=== PATIENT | female | born 1995 | race Caucasian/White ===

== ENCOUNTER 2022-01-08 07:05 | Outpatient (CLI) | payer BC, SELFPAY ==
--- NOTE | 2022-01-08 07:15 | CRLHL7_ITS ---
For Patients: As a result of the Century Cures Act, medical imaging exams and procedure reports are released immediately into your electronic medical record. You may view this report before your referring provider. If you have questions, please contact your health care provider. INDICATION: Evaluate anatomy. COMPARISON: none TECHNIQUE: Real time gustafson scale imaging of the fetus was performed as well as color Doppler analysis of the umbilical vessels. FINDINGS: Sonographic imaging demonstrates a single living intrauterine gestation. Fetus demonstrates a regular cardiac rate of 141 beats per minute. Fetus has a vertex position. The placenta lies mostly posterior with accessory lobe in the anterior aspect without evidence of placenta previa. Small placental lakes noted measuring up to 7 x 6 x 8 millimeters. Amniotic fluid volume appears normal. Single deepest vertical pocket: 4.4 cm. The cervix is closed and measures 4.7 cm in length. The composite ultrasound gestational age is calculated at 20 weeks 6 days with an estimated sonographic due date of 05/22/2022. The estimated weight is 3608 grams which lies at the 60th %. The following biometric measurements were obtained: Biparietal diameter: 5.0 cm/21 weeks 1 day 81st% Head circumference: 18.4 cm/20 weeks 5 days 64th% Abdominal circumference: 15.1 cm/20 weeks 2 days 45th% Femur length: 3.4 cm/20 weeks 5 days 57th% The HC/AC ratio measures: 1.2 On anatomic survey, there is incomplete evaluation of the cerebral ventricles, cavum septi pellucidi, cisterna magna and cerebellum. The nose, lips, and facial profile appear normal. The cervical, thoracic and lumbar spine are well visualized and appear normal. There is a normal four-chamber heart view and the left and right ventricular outflow tracts appear normal. The diaphragm appears normal. The kidneys and bladder also are likely normal. Incomplete evaluation of the stomach. There is a normal three-vessel cord and cord insertion site. The four extremities appear normal. IMPRESSION: Sonographic gestational age 20 weeks 6 days and sonographic due date 05/22/2022. Estimated weight is 68th percentile. Abdominal circumference 45th percentile. Small placental lakes measuring up to 8 millimeters. The placenta lies primarily posteriorly although there appears to be an accessory lobe over the anterior aspect. No previa. Normal cord insertion. Incomplete visualization of the stomach and brain structures. Likely normal appearance of the kidneys. Remainder of the survey is normal. Follow-up in 2 weeks recommended to reassess the stomach, brain and kidneys. Dictated by Petey Rivera MD @ 01/08/2022 9:13:54 AM (Electronically Signed)
== END 2022-01-08 07:06 | disposition home or self-care (01) ==
PROVIDERS: Visit Provider Physician Assistant
DX: Z34.92 Encounter for supervision of normal pregnancy, unspecified, second trimester (principal); Z3A.20 20 weeks gestation of pregnancy
CPT/HCPCS: 76805; 76817

== ENCOUNTER 2022-01-08 09:27 | Outpatient (CLI) | payer BC, SELFPAY ==
[2022-01-08 12:43] LABS: Hepatitis C Virus Antibody* Negative (Negative)
== END 2022-01-08 09:28 | disposition home or self-care (01) ==
LOC: NFLDREF 09:28
PROVIDERS: Visit Provider Physician Assistant
DX: Z34.92 Encounter for supervision of normal pregnancy, unspecified, second trimester (principal)
CPT/HCPCS: 86803

== ENCOUNTER 2022-01-22 07:04 | Outpatient (CLI) | payer BC, SELFPAY ==
--- NOTE | 2022-01-22 07:15 | CRLHL7_ITS ---
For Patients: As a result of the Century Cures Act, medical imaging exams and procedure reports are released immediately into your electronic medical record. You may view this report before your referring provider. If you have questions, please contact your health care provider. INDICATION: f/u structures not previously seen, stomach/brain/kidneys COMPARISON: 01/08/2022 TECHNIQUE: Real time gustafson scale imaging of the fetus was performed as well as color Doppler analysis of the umbilical vessels. FINDINGS: Sonographic imaging demonstrates a single living intrauterine gestation. Fetus demonstrates a regular cardiac rate of 148 beats per minute. Fetus has a breech position. The placenta lies posteriorly. Amniotic fluid volume appears normal. Single deepest vertical pocket: 4.7 cm. Normal stomach, brain and kidneys. IMPRESSION: Normal stomach, brain and kidneys. Dictated by Petey Rivera MD @ 01/22/2022 10:33:18 AM (Electronically Signed)
== END 2022-01-22 07:05 | disposition home or self-care (01) ==
LOC: US 07:07
PROVIDERS: Visit Provider Physician Assistant
DX: Z34.92 Encounter for supervision of normal pregnancy, unspecified, second trimester (principal)
CPT/HCPCS: 76816

== ENCOUNTER 2022-03-09 08:02 | Outpatient (CLI) | payer BC, SELFPAY ==
[2022-03-11 06:34] LABS: Rapid Plasma Reagin (RPR) Non Reactive (Non Reactive)
== END 2022-03-09 08:03 | disposition home or self-care (01) ==
LOC: NFLDREF 08:03
PROVIDERS: Visit Provider Advanced Practice Midwife
DX: Z34.93 Encounter for supervision of normal pregnancy, unspecified, third trimester (principal); Z3A.28 28 weeks gestation of pregnancy
CPT/HCPCS: 86592

== ENCOUNTER 2022-03-12 08:42 | Outpatient (CLI) | payer BC, SELFPAY ==
[2022-03-12 08:09] LABS: Glucose Fasting Check 78 mg/dl (60-115)
[2022-03-12 13:17] LABS: Glucose 1 Hour Gest 146 mg/dl (70-180)
[2022-03-12 13:18] LABS: Glucose GTT-Gestational 3 Hr 110 mg/dl (70-140)
== END 2022-03-12 08:43 | disposition home or self-care (01) ==
PROVIDERS: Visit Provider Advanced Practice Midwife
DX: O99.810 Abnormal glucose complicating pregnancy (principal)
CPT/HCPCS: 82951; 82952

== ENCOUNTER 2022-04-06 09:07 | Outpatient (CLI) | payer BC, SELFPAY ==
--- NOTE | 2022-04-06 09:15 | CRLHL7_ITS ---
For Patients: As a result of the Century Cures Act, medical imaging exams and procedure reports are released immediately into your electronic medical record. You may view this report before your referring provider. If you have questions, please contact your health care provider. INDICATION: Third trimester scan, evaluate growth. covid in COMPARISON: 01/22/2022 TECHNIQUE: Real time gustafson scale imaging of the fetus was performed. FINDINGS: Sonographic imaging demonstrates a single living intrauterine gestation. Fetus demonstrates a regular cardiac rate of 123 beats per minute. Fetus has a vertex position. The placenta lies along the left wall. Amniotic fluid volume appears normal and there is a single deepest vertical pocket: 5.7 cm. The estimated weight is 2009gm which lies at the 32nd %. BPD greater than 97th percentile. HC 57th percentile. AC 27th percentile. FL 20th percentile. The HC/AC ratio measures 1.10 range (0.95-1.11). IMPRESSION: Sonographic gestational age 33 weeks 4 days and sonographic due date 05/21/2022. Sonographic age is 5 days ahead of the clinical age. Estimated weight 32nd percentile. Abdominal circumference 27th percentile. BPD greater than 97th percentile. Dictated by Petey Rivera MD @ 04/06/2022 10:12:47 AM (Electronically Signed)
== END 2022-04-06 09:08 | disposition home or self-care (01) ==
LOC: US 09:09
PROVIDERS: Visit Provider Advanced Practice Midwife
DX: O98.513 Other viral diseases complicating pregnancy, third trimester (principal); Z3A.33 33 weeks gestation of pregnancy
CPT/HCPCS: 76816

== ENCOUNTER 2022-04-21 08:45 | Outpatient (CLI) | payer BC, SELFPAY ==
[2022-04-21 09:37] LABS: Alanine Aminotransferase* 21 U/L (4-35); Aspartate Amino Transferase* 35 U/L (12-35); Blood Urea Nitrogen* 9 mg/dL (5-24); Creatinine* 0.3 mg/dL (0.5-1.5); Estimated Glomerular Filt Rate 149 ml/min
[2022-04-21 09:48] LABS: Total Protein Urine 13 mg/dL
[2022-04-22 13:06] LABS: Strep B DNA Probe NEGATIVE (Negative)
[2022-04-23 20:51] LABS: Strep B Pen/Amox Allergy No
== END 2022-04-21 08:46 | disposition home or self-care (01) ==
PROVIDERS: Visit Provider Advanced Practice Midwife
DX: O13.9 Gestational [pregnancy-induced] hypertension without significant proteinuria, unspecified trimester (principal)
CPT/HCPCS: 82565; 82570; 84156; 84450; 84460; 84520; 87081; 87086; 87653

== ENCOUNTER 2022-04-22 18:50 | Outpatient (CLI) | payer BC, SELFPAY ==
[2022-04-22] VITALS (11 sets, daily range): BP systolic 117–135; BP diastolic 74–84; PULSE 83–106; RESP 16; TEMP 36.6; O2SAT 96
[2022-04-22 20:03] LABS: Hematocrit 37.2 % (33.0-51.0); Hemoglobin* 12.9 gm/dL (12.0-16.0); Mean Corpuscular HGB Conc 35 gm/dL (32-36); Mean Corpuscular Hemoglobin 30 pg (26-34); Mean Corpuscular Volume 87 fL (80-100); Platelet Count* 197 K/uL (140-440); Red Blood Count 4.27 m/uL (4.00-5.20); White Blood Count* 10.71 K/uL (4.50-11.00)
[2022-04-22 20:09] LABS: Slide Review Reflex No
[2022-04-22 20:15] LABS: Total Protein Urine 18 mg/dL
[2022-04-22 20:17] LABS: Creatinine Urine 46.6 mg/dL
[2022-04-22 20:27] LABS: Alanine Aminotransferase* 21 U/L (4-35); Aspartate Amino Transferase* 30 U/L (12-35); Blood Urea Nitrogen* 10 mg/dL (5-24); Creatinine* 0.4 mg/dL (0.5-1.5); Estimated Glomerular Filt Rate 139 ml/min
--- NOTE | 2022-04-22 22:31 | PC.OBNST ---
NST Note NST Note Start: 04/22/22 19:10 Freq: ONCE Status: Discharge Protocol: Document 04/22/22 22:20 MMB (Rec: 04/22/22 22:21 MMB [id number]) NST Note 1 Para (# of births) 0 EDC 05/26/22 Gestational Age In Weeks & Days 35 Weeks & 1 Days Patient Presented with Complaint(s) of Headache Other Complaints High blood pressures on home BP monitor at home. Reactive Yes Appropriate for Gestational Age Yes MARILYN Lezama RN Date 04/22/22 Reactive Yes Appropriate for Gestational Age Yes MARILYN Herbert RN Date 04/22/22 OB NST charge Yes Complete NST Note via Write Note Yes The provider's electronic signature indicates the NST is reactive/appropriate for gestational age. *Note to provider: If an addendum is required, open the patient's chart and click on the note under the Nurse/Allied Health tab.
== END 2022-04-22 21:10 | disposition home or self-care (01) ==
LOC: OB OUT 18:52 → OB 18:53
PROVIDERS: Visit Provider Advanced Practice Midwife
DX: O13.3 Gestational [pregnancy-induced] hypertension without significant proteinuria, third trimester (principal); Z3A.35 35 weeks gestation of pregnancy
CPT/HCPCS: 36415; 59025; 76819; 82565; 82570; 84156; 84450; 84460; 84520; 85027; 99213

== ENCOUNTER 2022-04-24 09:46 | Outpatient (CLI) | payer BC, SELFPAY ==
[2022-04-24 11:02] LABS: Total Protein Urine 13 mg/dL
[2022-04-24 11:04] LABS: Creatinine Urine 55.8 mg/dL
[2022-04-24 11:09] LABS: Collection Time Urine 24 Hours; Total Protein 24 Hour Urine 273 mg/dL; Total Volume 24 Hour Urine 2100 ml; Urine Creatinine mg/24 Hour 0 mg/Day
== END 2022-04-24 09:47 | disposition home or self-care (01) ==
LOC: NFLDREF 09:49
PROVIDERS: Visit Provider Advanced Practice Midwife
DX: O13.3 Gestational [pregnancy-induced] hypertension without significant proteinuria, third trimester (principal); Z3A.36 36 weeks gestation of pregnancy
CPT/HCPCS: 82570; 84156

== ENCOUNTER 2022-05-01 07:13 | Outpatient (CLI) | payer BC, SELFPAY ==
--- NOTE | 2022-05-01 07:15 | CRLHL7_ITS ---
For Patients: As a result of the Century Cures Act, medical imaging exams and procedure reports are released immediately into your electronic medical record. You may view this report before your referring provider. If you have questions, please contact your health care provider. INDICATION: High-risk TECHNIQUE: Real time gustafson scale imaging of the fetus was performed. COMPARISON: 04/22/2022, 04/06/2022 FINDINGS: Sonographic imaging demonstrates a single living intrauterine gestation. Fetus demonstrates a regular cardiac rate of 144 beats per minute. Fetus has a vertex position. The placenta lies left anterior. Amniotic fluid volume appears normal and there is a single deepest pocket of 4.3 cm. The estimated weight is 2896gm which lies at the 49th %. On the prior OB ultrasound dated 04/06/2022 the estimated weight was at the 32nd percentile. BPD 68th percentile. HC 36th percentile. AC 66th percentile. FL 17th percentile. The fetus was active and demonstrated normal breathing movements. There was normal flexion and extension of the trunk and extremities. IMPRESSION: Normal biophysical profile score 8/8. Sonographic gestational age 36 weeks 3 days and sonographic due date 05/26/2022. Good correlation with dates. Normal interval growth. Estimated weight 49th percentile. Abdominal circumference 66th percentile. Dictated by Petey Rivera MD @ 05/01/2022 10:10:28 AM (Electronically Signed)
== END 2022-05-01 07:14 | disposition home or self-care (01) ==
LOC: US 07:13
PROVIDERS: Visit Provider Advanced Practice Midwife
DX: O09.93 Supervision of high risk pregnancy, unspecified, third trimester (principal); Z3A.36 36 weeks gestation of pregnancy
CPT/HCPCS: 76816; 76819; 82565; 82570; 84156; 84450; 84460; 84520; 84550

== ENCOUNTER 2022-05-03 19:08 | Inpatient (IN) | payer BC, SELFPAY ==
[2022-05-03] VITALS (17 sets, daily range): BP systolic 94–172; BP diastolic 63–107; PULSE 73–93; BMI 23.6
[2022-05-03 19:11] LABS: Hematocrit 37.9 % (33.0-51.0); Hemoglobin* 13.2 gm/dL (12.0-16.0); Mean Corpuscular HGB Conc 35 gm/dL (32-36); Mean Corpuscular Hemoglobin 30 pg (26-34); Mean Corpuscular Volume 87 fL (80-100); Platelet Count* 187 K/uL (140-440); Red Blood Count 4.37 m/uL (4.00-5.20); Slide Review Reflex No; White Blood Count* 9.14 K/uL (4.50-11.00)
[2022-05-03] MEDS: LABETALOL HCL 5 MG/ML inj IVP (19:14)
[2022-05-03] MEDS: LACTATED RINGERS 1000 ML 1,000 ML 75 ML IV (19:15)
[2022-05-03 19:27] LABS: Alanine Aminotransferase* 21 U/L (4-35); Aspartate Amino Transferase* 29 U/L (12-35); Blood Urea Nitrogen* 12 mg/dL (5-24); Creatinine* 0.4 mg/dL (0.5-1.5); Estimated Glomerular Filt Rate 139 ml/min; Total Protein Urine 17 mg/dL
[2022-05-03 19:29] LABS: Creatinine Urine 16.7 mg/dL
--- NOTE | 2022-05-03 20:06 | W.PM.LDBA ---
Subjective History of Present Illness Date Seen: 05/03/22 Narrative: Patient is being admitted to Labor and Delivery for IOL in the setting of preeclampsia with severe features. She is a 26 year old at 36 5/7 weeks gestation. Her full history and physical was dictated by Dr. Olinda CORADO on 04/28/22. Please see this for details. Patient called labor and delivery with concerns of severely elevated blood pressures at home systolics in the 160s range, she also complains of a mild headache but feels like this could be associated with a recent sinus infection. Upon arrival patient was found with systolic in the 170s. IV labetalol and IV Magnesium therapy started for seizure prevention. OB - H&P: Exam Physical Exam: Vital signs: Pulse BP 90 142/83 H 05/03/22 19:45 05/03/22 19:45 Narrative: VITAL SIGNS: As noted above. GENERAL APPEARANCE: Alert, cooperative female in no acute distress. MOOD & AFFECT: Normal. ABDOMEN: Gravid, nontender Cervix:1.5cm/60%/vx/-1, posterior but soft EXTREMITIES: Nonedematous. Well perfused. Nontender. NST:130bpm/positive accelerations/negative deceleration/moderate variability/irregular uterine contractions OB - Problem Based A/P Additional Plan (1) Severe preeclampsia: Status: Acute Plan IOL due to preeclampsia with severe features: 1. IOL started with placement of cook catheter, will also start IV oxytocin at midnight. 2. Continue maintenance Magnesium sulfate infusion, labs every 4 hours, magnesium toxicity checks as per protocol, STRICT I/O, will treat severely elevated blood pressures as needed and per protocol. 3. GBS negative no need for antibiotic prophylaxis. 4. Pain management, candidate for analgesia of choice.
[2022-05-03 21:37] LABS: SARS PCR* Negative SARS-CoV-2 (Negative)
[2022-05-04] VITALS (79 sets, daily range): BP systolic 92–144; BP diastolic 46–85; PULSE 63–93; RESP 16–18; TEMP 36.3–37.2; O2SAT 91–100
[2022-05-04 01:14] LABS: Hematocrit 35.4 % (33.0-51.0); Hemoglobin* 12.4 gm/dL (12.0-16.0); Mean Corpuscular HGB Conc 35 gm/dL (32-36); Mean Corpuscular Hemoglobin 31 pg (26-34); Mean Corpuscular Volume 88 fL (80-100); Platelet Count* 181 K/uL (140-440); Red Blood Count 4.04 m/uL (4.00-5.20); White Blood Count* 10.63 K/uL (4.50-11.00)
[2022-05-04 01:16] LABS: Slide Review Reflex No
[2022-05-04 01:30] LABS: Prothrombin Time 12.7 Seconds
[2022-05-04 01:31] LABS: Fibrinogen* 453 mg/dL (200-450)
[2022-05-04 01:34] LABS: Creatinine* 0.4 mg/dL (0.5-1.5); Estimated Glomerular Filt Rate 139 ml/min
[2022-05-04 01:35] LABS: Alanine Aminotransferase* 19 U/L (4-35); Aspartate Amino Transferase* 30 U/L (12-35); Blood Urea Nitrogen* 11 mg/dL (5-24)
[2022-05-04] MEDS: OXYTOCIN 30 unit/500 ML in NS 30 UNIT/500 ML BAG IVPB (01:42)
[2022-05-04 01:44] LABS: Magnesium* 4.7 mg/dL (1.5-2.6)
[2022-05-04 07:34] LABS: Hematocrit 40.5 % (33.0-51.0); Hemoglobin* 13.9 gm/dL (12.0-16.0); Mean Corpuscular HGB Conc 34 gm/dL (32-36); Mean Corpuscular Hemoglobin 30 pg (26-34); Mean Corpuscular Volume 87 fL (80-100); Platelet Count* 198 K/uL (140-440); Red Blood Count 4.65 m/uL (4.00-5.20); White Blood Count* 10.51 K/uL (4.50-11.00)
[2022-05-04 07:40] LABS: Slide Review Reflex No
[2022-05-04 07:50] LABS: Alanine Aminotransferase* 21 U/L (4-35); Aspartate Amino Transferase* 28 U/L (12-35); Blood Urea Nitrogen* 9 mg/dL (5-24); Creatinine* 0.4 mg/dL (0.5-1.5); Estimated Glomerular Filt Rate 139 ml/min
[2022-05-04 07:58] LABS: Magnesium* 5.6 mg/dL (1.5-2.6)
[2022-05-04] MEDS: ONDANSETRON 2 MG/ML inj 4 MG IV (08:16)
[2022-05-04] MEDS: LACTATED RINGERS 1000 ML 1,000 ML 63 ML IV (08:26)
[2022-05-04] MEDS: ROPIVACAINE 0.2% 100 ml 100 ML 12 MG EPIDURAL (09:46)
[2022-05-04] MEDS: PHENYLEPHRINE 100 MCG/ML SYRINGE IVP ×5 (09:51→10:51)
--- NOTE | 2022-05-04 09:57 | PM.ANBPRC ---
[facility] Medical History (Updated 05/03/22 @ 20:59 by Laurie Alexandra MD) No chronic problems Surgical History (Updated 01/08/22 @ 10:26 by Melanie Doyle PA-C) History of wisdom tooth extraction Social History (Updated 01/08/22 @ 10:26 by Melanie Doyle PA-C) Narrative: [employer]. . Smoking Status: Never smoker Little interest or pleasure in doing things: not at all Feeling down, depressed, or hopeless: not at all Meds Home Medications and Allergies Home Medications Medication Instructions Recorded Confirmed Type docosahexaenoic acid 200 mg mg PO 01/08/22 05/01/22 History capsule ( DHA) Allergies Allergy/AdvReac Type Severity Reaction Status Date / Time No Known Drug Allergies Allergy Verified 05/01/22 08:46 Results Labs Labs: Laboratory Results - last 24 hr 05/03/22 05/03/22 05/03/22 19:03 19:03 19:03 WBC 9.14 RBC 4.37 Hgb 13.2 Hct 37.9 MCV 87 MCH 30 MCHC 35 Plt Count 187 INR Fibrinogen BUN 12 Creatinine 0.4 L Estimated Creat Clear Estimated GFR 139 Magnesium AST 29 ALT 21 Urine Creatinine Protein/Creatinin Ratio Urine Total Protein SARS-CoV-2 (PCR) Negative SARS-CoV-2 Blood Type Antibody Screen 05/03/22 05/04/22 05/04/22 19:03 01:05 01:05 WBC 10.63 RBC 4.04 Hgb 12.4 Hct 35.4 MCV 88 MCH 31 MCHC 35 Plt Count 181 INR Fibrinogen BUN Creatinine Estimated Creat Clear Estimated GFR Magnesium AST ALT Urine Creatinine 16.7 Protein/Creatinin Ratio 1.00 H Urine Total Protein 17 SARS-CoV-2 (PCR) Blood Type A Positive Antibody Screen NEGATIVE 05/04/22 05/04/22 05/04/22 01:05 01:05 07:03 WBC 10.51 RBC 4.65 Hgb 13.9 Hct 40.5 MCV 87 MCH 30 MCHC 34 Plt Count 198 INR 0.90 L Fibrinogen 453 H BUN 11 Creatinine 0.4 L Estimated Creat Clear 190.10 Estimated GFR 139 Magnesium 4.7 H* AST 30 ALT 19 Urine Creatinine Protein/Creatinin Ratio Urine Total Protein SARS-CoV-2 (PCR) Blood Type Antibody Screen 05/04/22 07:03 WBC RBC Hgb Hct MCV MCH MCHC Plt Count INR Fibrinogen BUN 9 Creatinine 0.4 L Estimated Creat Clear 190.10 Estimated GFR 139 Magnesium 5.6 H* AST 28 ALT 21 Urine Creatinine Protein/Creatinin Ratio Urine Total Protein SARS-CoV-2 (PCR) Blood Type Antibody Screen Vital Signs Vital Signs: Last Vital Signs Temp 97.6 F 05/04/22 07:16 Pulse 78 05/04/22 09:55 Resp 16 05/04/22 07:16 BP 130/85 05/04/22 09:55 Pulse Ox 98 05/04/22 09:39 Weight: 64.424 kg Height: 165.1 cm Anesthesia Procedures Epidural Insertion Patient Location: OB Start Time: : Stop Time: :17 Start Date: 05/04/22 Stop Date: 05/04/22 Reason for Block: procedure for pain Patient Position: sitting Performed By: Teddy Nesbitt Preanesthetic Checklist: IV checked, risks and benefits discussed, surgical consent, monitors and equipment checked, pre-op evaluation, timeout performed and anesthesia consent Prep: chlorhexidine gluconate Monitoring: blood pressure monitoring, continuous pulse oximetry and heart rate Approach: midline Vertebral Space: lumbar (1-5) Epidural Technique: MARCIA saline Needle Type: Tuohy needle Injection Technique: continuous catheter Needle gauge: 17 Needle Length (cm): 10 cm Needle Insertion Depth (cm): 6 Catheter Gauge: 19 Catheter Type: multi-orifice Catheter at skin depth (cm): 12 Test Dose Result: negative and lidocaine 1.5% with epinephrine 1 to 200,000
[2022-05-04] MEDS: ePHEDrine sulfate 5 MG/ML inj 10 MG IVP ×2 (10:57→11:40)
[2022-05-04] MEDS: LACTATED RINGERS 1000 ML 1,000 ML 500 ML IV (11:01)
--- NOTE | 2022-05-04 11:20 | PM.OBPNL ---
Subjective Time Seen by Provider: 08:00 Date Seen: 05/04/22 Objective Vital Signs: Last Vital Signs Temp 97.5 F L 05/04/22 10:44 Pulse 80 05/04/22 11:18 Resp 16 05/04/22 10:44 BP 105/57 L 05/04/22 11:18 Pulse Ox 97 05/04/22 10:21 Pelvic Exam Dilation (cm): 7 Effacement (%): 90 Station: +1 Contractions Monitor mode: External Contraction pattern: Regular Contraction intensity: Moderate Assessment Assessment: active labor and induction ongoing Tracing Comments: Examined patient at 0745 and she was 4/75/-1, very uncomfortable. At that point, strip was Cat I with baseline of 120s, moderate variability, + accel and no decel. She SROM shortly afterd at 0808. Shortly after she started having intermittent variables, resolved with position changes. After her epidural at around 1000, patient had a run of late decelerations down to 90s due to hypotension to the 90s/50s. Scalp clip placed. She was treated with phenylephrine and ephedrine, Pitocin was turned off from IV bolus initiated, and she was repositioned in the knees. SVE by myself at 1030: 7/90/+1. Fetus recovered well after the interventions. Baseline 110s, moderate variability, +accel, no decel. Labor Progress: Patient in active labor and progressing appropriately. Maternal Status: Patient comfortable but is hypotensive. Will treat BP and monitor.
[2022-05-04] MEDS: LACTATED RINGERS 1000 ML 1,000 ML 125 ML IV (13:01)
--- NOTE | 2022-05-04 15:01 | PM.OBPRCVD ---
Procedure Delivery date: 05/04/22 Procedure Done: Global Procedure Details: Jasmina is a 26 year-old G 1P 100 admitted on 05/03/2022 at 36 Weeks, 5 Days gestation for preeclampsia with severe features. SROM occurred at 0807 on 05/04/2022 with clear fluid. Labor Analgesia: Fentanyl and epidural Pitocin: Yes Labor onset: May 04 at 0807. Complete: May 04 at 1247. Pushing: May 04 at 1248. heart tones during second stage were: Cat II with intermittent variables and lates. Good recovery in between pushing and moderate variability throughout. At 1437 a viable male infant delivered in vertex OA presentation over 1st degree laceration via spontaneous vaginal delivery. The was placed on maternal abdomen. Cord was clamped and cut after a 30 second delay. Nose and mouth were bulb suctioned. weight 6 lb 12 oz. 6 at 1 minute and 8 at 5 minutes. Shoulder dystocia: No. Nuchal cord: Tight nuchal cord x1, reduce manually after delivery of head. Placenta delivered spontaneously and complete at 1438 with a 3 vessel cord. Laceration(s): First-degree. Repaired using 2-0 Vicryl suture in continuous running manner. Blood loss: 50 mL. Blood loss measurement type: QBL Sponge and needles counts are correct. Specimen: None Mother and were stable after delivery. 's name: Undecided The patient is planning on breast feeding. Events: Labor < 37 Weeks, Pre-Eclampsia (Pre-eclampsia with severe features ) and Labor Induction Intrapartal Events: Labor Induction Induction method: Intracervical balloon catheter Delivery augmentation: pitocin Delivery monitor: external FHT Route of delivery: Episiotomy description: None Laceration description: Perineal - 1st Degree Delivery repair: Vicryl Anesthesia type: Epidural Disposition: floor
[2022-05-04 15:42] LABS: Hematocrit 39.7 % (33.0-51.0); Hemoglobin* 13.8 gm/dL (12.0-16.0); Mean Corpuscular HGB Conc 35 gm/dL (32-36); Mean Corpuscular Hemoglobin 30 pg (26-34); Mean Corpuscular Volume 87 fL (80-100); Platelet Count* 152 K/uL (140-440); Red Blood Count 4.54 m/uL (4.00-5.20); White Blood Count* 12.87 K/uL (4.50-11.00)
[2022-05-04 15:43] LABS: Slide Review Reflex No
[2022-05-04 15:59] LABS: Alanine Aminotransferase* 21 U/L (4-35); Aspartate Amino Transferase* 33 U/L (12-35); Blood Urea Nitrogen* 8 mg/dL (5-24); Creatinine* 0.4 mg/dL (0.5-1.5); Estimated Glomerular Filt Rate 139 ml/min
[2022-05-04 16:08] LABS: Magnesium* 5.6 mg/dL (1.5-2.6)
[2022-05-04] MEDS: IBUPROFEN 600 MG TABLET PO (18:20)
[2022-05-05] VITALS (9 sets, daily range): BP systolic 115–147; BP diastolic 68–93; PULSE 82–98; RESP 16; TEMP 36.4–36.8; O2SAT 95–100
[2022-05-05] MEDS: IBUPROFEN 600 MG TABLET PO ×4 (00:37→18:19)
[2022-05-05] MEDS: LACTATED RINGERS 1000 ML 1,000 ML 75 ML IV (01:09)
[2022-05-05 06:13] LABS: Hematocrit 33.9 % (33.0-51.0); Hemoglobin* 11.6 gm/dL (12.0-16.0); Mean Corpuscular HGB Conc 34 gm/dL (32-36); Mean Corpuscular Hemoglobin 30 pg (26-34); Mean Corpuscular Volume 88 fL (80-100); Platelet Count* 183 K/uL (140-440); Red Blood Count 3.87 m/uL (4.00-5.20); White Blood Count* 11.31 K/uL (4.50-11.00)
[2022-05-05 06:17] LABS: Slide Review Reflex No
[2022-05-05 06:25] LABS: Alanine Aminotransferase* 21 U/L (4-35); Aspartate Amino Transferase* 35 U/L (12-35); Blood Urea Nitrogen* 6 mg/dL (5-24); Creatinine* 0.4 mg/dL (0.5-1.5); Estimated Glomerular Filt Rate 139 ml/min
[2022-05-05 06:33] LABS: Magnesium* 5.8 mg/dL (1.5-2.6)
[2022-05-05] MEDS: DOCUSATE SODIUM 100 MG CAPSULE PO (08:54)
--- NOTE | 2022-05-05 13:40 | PM.OBPNVD1 ---
OB - PN:Subj Subjective Time Seen by Provider: 11:00 Date Seen: 05/05/22 Interval history: OB Problem List 1. Transfer OB at 20 weeks 2 days:? No records at 1st visit 2.?Accessory placenta lobe w/ Small placental lakes noted measuring up to 7 x 6 x 8 millimeters.? 3. Varicella IgG: Equivocal.? Would consider nonimmune. Would consider vaccination . 4. Covid in October at 12 weeks. Doing growth at 33 weeks: EFW 32% repeat at 37 5. Failed 1hr GTT: 143 3hr: Pass all values of 3 hour 6. Gestational Hypertension, then severe preeclampsia Elevated BP at 35 weeks (04/21). BP re-check on 04/22: 150/100 Biweekly monitoring alternating BPP and NST IOL @ 37 Weekly labs Betamethasone at 36weeks, declines at this time, consider at Tuesday 05/01 appointment: Declines Narrative: Dom has been maintained on magnesium. She is having a little difficulty focusing her eyes, but her mag level is normal. She is looking forward to taking a shower. She is without difficulty. Scant bleeding. Minimal discomfort; some cramping accompanying . Tolerating a regular diet. Urinating without difficulty. OB - PN: Obj Exam Physical Exam: Vital signs: Temp Pulse Resp BP Pulse Ox O2 Del Method 97.5 F L 89 16 131/81 97 05/05/22 12:16 05/05/22 12:16 05/05/22 12:16 05/05/22 12:16 05/05/22 12:16 05/05/22 07:49 Normotensive since of her baby yesterday. Narrative: General: Pleasant, no acute distress Heart: Regular rate and rhythm, no murmur or gallop Lungs: Clear to auscultation bilaterally Abdomen: Soft, nontender, fundus well below umbilicus Lower extremities: No edema or erythema OB - PN: Obj Data Labs Labs: Laboratory Results - last 24 hr 05/04/22 05/04/22 05/05/22 15:37 15:37 06:00 WBC 12.87 H 11.31 H RBC 4.54 3.87 L Hgb 13.8 11.6 L Hct 39.7 33.9 MCV 87 88 MCH 30 30 MCHC 35 34 Plt Count 152 183 BUN 8 Creatinine 0.4 L Estimated Creat Clear 190.10 Estimated GFR 139 Magnesium 5.6 H* AST 33 ALT 21 05/05/22 05/05/22 06:00 06:00 WBC RBC Hgb Hct MCV MCH MCHC Plt Count BUN 6 Creatinine 0.4 L Estimated Creat Clear 190.10 Estimated GFR 139 Magnesium 5.8 H* AST 35 ALT 21 OB - PN: A/P Vaginal Delivery Assessment and Plan (1) Severe preeclampsia: Status: Acute Assessment and Plan: With IOL at 36 5/7 weeks for this indication. Now PPD #1 s/p . Appropriate course. She has been normotensive since delivery, with all HELLP labs within normal ranges, and magnesium within therapeutic ranges. Continue till 3:00 p.m. this afternoon. Thereafter, will pay particular attention to blood pressure elevation.
[2022-05-05] MEDS: LABETALOL HCL 100 MG TABLET PO (18:20)
[2022-05-05 19:25] LABS: Hematocrit 35.5 % (33.0-51.0); Hemoglobin* 12.1 gm/dL (12.0-16.0); Mean Corpuscular HGB Conc 34 gm/dL (32-36); Mean Corpuscular Hemoglobin 30 pg (26-34); Mean Corpuscular Volume 89 fL (80-100); Platelet Count* 216 K/uL (140-440); Red Blood Count 3.98 m/uL (4.00-5.20); White Blood Count* 9.16 K/uL (4.50-11.00)
[2022-05-05 19:33] LABS: Slide Review Reflex No
[2022-05-05 20:12] LABS: Alanine Aminotransferase* 24 U/L (4-35); Aspartate Amino Transferase* 43 U/L (12-35); Blood Urea Nitrogen* 9 mg/dL (5-24); Creatinine* 0.5 mg/dL (0.5-1.5); Est. Creatinine Clearance* 152.08; Estimated Glomerular Filt Rate 132 ml/min
[2022-05-06] MEDS: IBUPROFEN 600 MG TABLET PO (02:06)
[2022-05-06 03:46] VITALS: BP 148/87; PULSE 86
[2022-05-06 08:46] VITALS: BP 166/104; PULSE 80; RESP 16; O2SAT 98
[2022-05-06 09:01] VITALS: BP 155/92
[2022-05-06] MEDS: LABETALOL HCL 100 MG TABLET PO (09:04)
[2022-05-06] MEDS: DOCUSATE SODIUM 100 MG CAPSULE PO (09:05)
--- NOTE | 2022-05-06 09:07 | PM.OBPNVD1 ---
OB - PN:Subj Subjective Time Seen by Provider: 09:07 Date Seen: 05/06/22 Interval history: OB Problem List 1. Transfer OB at 20 weeks 2 days:? No records at 1st visit 2.?Accessory placenta lobe w/ Small placental lakes noted measuring up to 7 x 6 x 8 millimeters.? 3. Varicella IgG: Equivocal.? Would consider nonimmune. Would consider vaccination . 4. Covid in October at 12 weeks. Doing growth at 33 weeks: EFW 32% repeat at 37 5. Failed 1hr GTT: 143 3hr: Pass all values of 3 hour 6. Gestational Hypertension, then severe preeclampsia Elevated BP at 35 weeks (04/21). BP re-check on 04/22: 150/100 Biweekly monitoring alternating BPP and NST IOL @ 37 Weekly labs Betamethasone at 36weeks, declines at this time, consider at Tuesday 05/01 appointment: Declines Patient comments OB post-: no complaints infant status: Narrative: Feels better off mag! Denies headaches, swelling, RUQ pain. BPs have been increasing despite labetalol 100 mg po BID. Patient mentions that she felt very tired in the past when she was briefly on metoprolol for sinus tachycardia. failed car seat trial, will be repeating with new pad. OB - PN: Obj Exam Physical Exam: Vital signs: Temp Pulse Resp BP Pulse Ox O2 Del Method 98 F 80 16 166/104 H 98 05/05/22 23:34 05/06/22 08:46 05/06/22 08:46 05/06/22 08:46 05/06/22 08:46 05/06/22 08:46 Constitutional: Constitutional: no acute distress Routine Neck Exam: Neck: Present normal inspection Routine Respiratory Exam: Respiratory: Present CTA bilaterally; Absent respiratory distress Routine Cardiovascular Exam: Cardiovascular: Present RRR; Absent murmur Routine Abdominal Exam: Abdominal: Present soft; Absent tenderness Fundus: Present firm Routine Extremities Exam: Extremities: Present normal inspection and pedal edema; Absent calf tenderness Routine Neurological Exam: Neurological: Present alert and oriented X3 Routine Psychiatric Exam: Psychiatric: Present normal affect OB - PN: Obj Data Labs Labs: Laboratory Results - last 24 hr 05/05/22 05/05/22 19:20 19:20 WBC 9.16 RBC 3.98 L Hgb 12.1 Hct 35.5 MCV 89 MCH 30 MCHC 34 Plt Count 216 BUN 9 Creatinine 0.5 Estimated Creat Clear 152.08 Estimated GFR 132 AST 43 H ALT 24 OB - PN: A/P Vaginal Delivery Assessment and Plan (1) Severe preeclampsia: Status: Acute Plan Will add Procardia ER 30 mg po daily for better BP control. Reassess for discharge later today. Discussed home BP monitoring and close follow up after discharge. Patient will need a new home BP monitor, as her current one is from 2011 and does not correctly read diastolic BP. Plan day: 2 Plan: routine care
[2022-05-06] MEDS: NIFEdipine 30 MG TAB.ER.24 PO (09:24)
[2022-05-06 10:02] VITALS: BP 121/71; PULSE 93; RESP 16
[2022-05-06 12:05] VITALS: BP 126/83; PULSE 88; RESP 16; TEMP 36.6; O2SAT 98
--- NOTE | 2022-05-06 12:11 | P.DS_ITS ---
DS: Providers Provider Time Seen by Provider: 08:30 Date Seen: 05/06/22 Date of admission: 05/03/22 19:08 Primary care physician: Not a Local Provider Admitting Clinician: Camila Prakash CNM Attending Physician on discharge: Serenity Plunkett MD Date of Discharge: 05/06/22 DS: Diagnosis Discharge Diagnosis (1) Severe preeclampsia: Status: Acute (2) Status post normal vaginal delivery: Status: Acute Exam Const: Vital Signs, click to edit/add: Vital Signs - 24 hr 05/05/22 12:16 05/05/22 16:30 05/05/22 15:00 Temperature 97.5 F L 97.5 F L Pulse Rate [Pulse Oximeter] 89 90 Respiratory Rate 16 16 Blood Pressure [Ri ght Arm] 131/81 147/93 H 138/90 H Pulse Oximetry 97 100 Oxygen Delivery Me thod Room Air 05/05/22 18:22 05/05/22 21:35 05/05/22 23:34 Temperature 98.1 F 98 F Pulse Rate [Pulse Oximeter] 98 82 Respiratory Rate 16 16 Blood Pressure [Ri ght Arm] 139/87 122/73 123/78 Pulse Oximetry 96 96 Oxygen Delivery Me thod Room Air Room Air 05/06/22 03:46 05/06/22 08:46 05/06/22 10:02 Temperature Pulse Rate [Pulse Oximeter] 86 80 93 Respiratory Rate 16 16 Blood Pressure [Ri ght Arm] 148/87 H 166/104 H 121/71 Pulse Oximetry 98 Oxygen Delivery Me thod Room Air 05/06/22 12:05 Temperature 98 F Pulse Rate [Pulse Oximeter] 88 Respiratory Rate 16 Blood Pressure [Ri ght Arm] 126/83 Pulse Oximetry 98 Oxygen Delivery Me thod Room Air Documenting provider has reviewed patient's vital signs: yes Common normals: no apparent distress, oriented x3, healthy appearing and well nourished HENMT: Common normals: normocephalic Head and scalp: normocephalic Chest: Common normals: inspection of chest normal Chest: symmetrical chest wall rise Other: Breast Exam: Deferred Resp: Common normals: normal respiratory effort and clear to auscultation bilaterally Auscultation: clear to auscultation bilaterally Cardio: Common normals: regular rate and regular rhythm Rate: regular rate Rhythm: regular rhythm GI: Common normals: soft to palpation and non-tender Inspection: normal to inspection Palpation: soft Other: Gravid Extremity: Common normals: normal to inspection and full ROM Neuro: Common normals: oriented x3 and moves all extremities Psych: Common normals: mental status grossly normal, thought process normal, cooperative, affect normal, speech normal and activity/motor behavior normal Speech: normal speech Thought process: normal thought process OB - DS: Summary Hospital Course Hospital Course: The patient is a 26 year old G 1 P 0 at 36 5/7 weeks gestation that was admitted to the Center on 05/03/22 for induction of labor secondary to preeclampsia with severe features. She had an uncomplicated vaginal delivery. She delivered a viable male infant. She is breast feeding. the patient has done well. Peripartum Data delivery method: Vaginal Laceration description: Perineal - 1st Degree complications: none Gender: Male Infant Discharge Plan: Home Status at Discharge Overall status at discharge: patient is back to baseline Time Spent with Patient Time attestation: Total time spent providing and/or coordinating discharge services: Time spent: Less than 30 minutes Discharge Plan Discharge Disposition: Home, Self-Care Date of Admission: 05/03/22 19:08 Attending Provider on Discharge: Serenity Plunkett Primary Care Provider: Provider,Not a Local Condition: Stable Anticipated Discharge Date/Time: 05/06/22 12:18 Discharge Medications: New nifedipine 30 mg Tablet Extended Release 24hr 30 mg PO DAILY Qty: 30 1RF docusate sodium 100 mg Capsule 100 mg PO DAILY Qty: 30 0RF ibuprofen 600 mg Tablet 600 mg PO Q6H PRNQty: 30 0RF labetalol 100 mg Tablet 100 mg PO BID Qty: 60 2RF Continued DHA 200 mg capsule 200 mg PO DAILY Discharge Orders: Discharge Order (Routine); Ordered 05/06/22 Ordered By: Serenity Plunkett Additional Instructions: Discharge instructions were reviewed with the patient including signs and symptoms of infection and home going medications Nothing vaginally for 6 weeks: no tampons or intercourse Do not drive while taking narcotic pain medication(s) Off Work or School for 8 weeks Symptoms to report to doctor: * Bleeding that saturates more than one pad per hour * Passing clots larger than the size of a golf ball * Pain not relieved by prescribed medication * Fever above 100.4 degrees Fahrenheit * A foul vaginal odor * Difficulty in emotions, mood, and functions * Thoughts of hurting yourself and/or * Painful, reddened area in your breast * Any drainage, redness, or tenderness in your IV/epidural site * Severe headache that doesn't improve after taking medications * Changes in vision, including temporary loss of vision, blurred vision, and/or light sensitivity * Upper abdominal pain (usually under ribs on the right side) * Decrease in urination or painful, frequent urinating * Chest pain * Shortness of breath * Tenderness or pain with redness and/swelling in the calf(s) of your leg [facility] for a BP check?05/07/2022 Call with BP greater than or equal to 160/110 Optional 2-week visit: discuss feeding concerns, review control options and screen for anxiety/depression. 6-week visit for an annual exam. consultation services are available to all mothers and babies for the first year after delivery.? To make an appointment, please call [phone]. Activity Level: Activity as Tolerated Discharge Diet: Regular Follow Up Appointments: Provider,Not a Local [Primary Care Provider] - Forms: [employer] Instructions
== END 2022-05-06 14:35 | disposition home or self-care (01) | DRG 560 ==
LOC: OB CLI 19:08 → OB 19:08
PROVIDERS: Internal Medicine Nephrology; Obstetrics & Gynecology; Admitting Provider Advanced Practice Midwife; Visit Provider Obstetrics & Gynecology
DX: O14.14 Severe pre-eclampsia complicating childbirth (principal); O43.193 Other malformation of placenta, third trimester; O70.0 First degree perineal laceration during delivery; I95.89 Other hypotension; Z86.16 Personal history of COVID-19; Z3A.36 36 weeks gestation of pregnancy; Z37.0 Single live birth
CPT/HCPCS: 01967; 36415; 82565; 82570; 83735; 84156; 84450; 84460; 84520; 85027; 85384; 85610; 86850; 86900; 86901; 87635; 88307; A9270; J2370; J2405; J2795; J3010; J3475; J7120; S0020

== ENCOUNTER 2024-01-17 09:10 | Outpatient (CLI) | payer BC, SELFPAY | END 2024-01-17 09:11 | disposition home or self-care (01) | PROVIDERS: Visit Provider Advanced Practice Midwife | DX: Z34.91 Encounter for supervision of normal pregnancy, unspecified, first trimester (principal); Z3A.01 Less than 8 weeks gestation of pregnancy | CPT/HCPCS: 76817; 82565; 82570; 84156; 84450; 84460; 84520; 86592; 86703; 86704; 86706; 86762; 86787; 86803; 86850; 86900; 86901; 87086; 87340 ==

== ENCOUNTER 2024-02-10 11:58 | Outpatient (CLI) | payer BC, SELFPAY ==
--- NOTE | 2024-02-10 12:15 | CRLHL7_ITS ---
For Patients: As a result of the Century Cures Act, medical imaging exams and procedure reports are released immediately into your electronic medical record. You may view this report before your referring provider. If you have questions, please contact your health care provider. INDICATION: Follow-up viability COMPARISON: 01/17/2024 TECHNIQUE: Real-time gustafson-scale imaging of the pelvis was performed. FINDINGS: Sonographic imaging demonstrates a single living intrauterine gestation. The embryo demonstrates a regular cardiac rate measuring 171 beats per minute. The embryo`s crown-rump length measurement of 4.1 cm corresponds to a gestational age of 11 weeks 0 days with a sonographic due date of 08/31/2024. Yolk sac not visualized. There are no gross abnormalities noted within the embryo at this early state of development. The gestational sac has a normal appearance. There is no evidence of a perigestational hemorrhage. The amount of fluid within the sac appears appropriate for gestational age. IMPRESSION: Single living intrauterine measuring 11 weeks 0 days and sonographic due date 08/31/2024. Normal exam. Dictated by Petey Rivera MD @ 02/10/2024 1:01:07 PM (Electronically Signed)
== END 2024-02-10 11:59 | disposition home or self-care (01) ==
LOC: US 11:58
PROVIDERS: Visit Provider Advanced Practice Midwife
DX: O02.0 Blighted ovum and nonhydatidiform mole (principal); Z3A.11 11 weeks gestation of pregnancy
CPT/HCPCS: 76801

== ENCOUNTER 2024-04-18 08:52 | Outpatient (CLI) | payer BC, SELFPAY ==
--- NOTE | 2024-04-18 09:00 | CRLHL7_ITS ---
For Patients: As a result of the Century Cures Act, medical imaging exams and procedure reports are released immediately into your electronic medical record. You may view this report before your referring provider. If you have questions, please contact your health care provider. INDICATION: Evaluate anatomy. COMPARISON: 02/10/2024 TECHNIQUE: Real time gustafson scale imaging of the fetus was performed as well as color Doppler analysis of the umbilical vessels. FINDINGS: Sonographic imaging demonstrates a single living intrauterine gestation. Fetus demonstrates a regular cardiac rate of 154 beats per minute. Fetus has a vertex position. The placenta lies posteriorly without evidence of placenta previa. Edge of the placenta located 7.1 cm from the internal cervical os. Amniotic fluid volume appears normal. Single deepest vertical pocket: 4.6 cm. The cervix is closed and measures 4.0 cm in length. The composite ultrasound gestational age is calculated at 21 weeks 0 days with an estimated sonographic due date of 08/29/2024. The estimated weight is 365 grams which lies at the 72nd %. The following biometric measurements were obtained: Biparietal diameter: 5.2 cm/21 weeks 5 days 95th% Head circumference: 18.3 cm/20 weeks 5 days 67th% Abdominal circumference: 16.0 cm/21 weeks 1 day 76th% Femur length: 3.2 cm/19 weeks 6 days 32nd% The HC/AC ratio measures: 1.14 range (1.06-1.25) On anatomic survey, there is a normal appearance of the cerebral ventricles, cavum septi pellucidi, cisterna magna and cerebellum. The nose, lips, and facial profile appear normal. The cervical, thoracic and lumbar spine are well visualized and appear normal. There is a normal four-chamber heart view and the left and right ventricular outflow tracts appear normal. The diaphragm and stomach appear normal. The kidneys and bladder also appear normal. There is a normal three-vessel cord and cord insertion site. The four extremities appear normal. IMPRESSION: Sonographic gestational age 21 weeks 0 days and a sonographic due date of 08/29/2024. Sonographic age 6 days ahead of the clinical age. No intrinsic abnormalities noted on anatomic survey. Dictated by Petey Rivera MD @ 04/18/2024 3:20:23 PM (Electronically Signed)
== END 2024-04-18 08:53 | disposition home or self-care (01) ==
LOC: US 08:53
PROVIDERS: Visit Provider Advanced Practice Midwife
DX: Z34.92 Encounter for supervision of normal pregnancy, unspecified, second trimester (principal); Z3A.21 21 weeks gestation of pregnancy
CPT/HCPCS: 76805

== ENCOUNTER 2024-05-24 08:20 | Outpatient (CLI) | payer BC, SELFPAY | END 2024-05-24 08:21 | disposition home or self-care (01) | LOC: NFLDREF 06-01 23:08 | PROVIDERS: Visit Provider Midwife | DX: Z77.011 Contact with and (suspected) exposure to lead (principal) | CPT/HCPCS: 83655 ==

== ENCOUNTER 2024-06-15 09:49 | Outpatient (CLI) | payer BC, SELFPAY | END 2024-06-15 09:50 | disposition home or self-care (01) | LOC: NFLDREF 06-17 02:58 | PROVIDERS: Visit Provider Advanced Practice Midwife | DX: Z34.93 Encounter for supervision of normal pregnancy, unspecified, third trimester (principal); Z3A.28 28 weeks gestation of pregnancy | CPT/HCPCS: 86592 ==

== ENCOUNTER 2024-07-20 20:11 | Outpatient (CLI) | payer BC, SELFPAY ==
[2024-07-20 20:26] VITALS: BP 133/86; PULSE 107
[2024-07-20 20:27] VITALS: RESP 16; TEMP 36.6
[2024-07-20 20:47] VITALS: BP 116/73; PULSE 100
== END 2024-07-20 21:11 | disposition home or self-care (01) ==
LOC: OB OUT 20:11 → OB 20:11
PROVIDERS: Visit Provider Advanced Practice Midwife
DX: O26.893 Other specified pregnancy related conditions, third trimester (principal); R51.9 Headache, unspecified; Z3A.33 33 weeks gestation of pregnancy
CPT/HCPCS: 59025; G0463

== ENCOUNTER 2024-08-07 12:22 | Outpatient (CLI) | payer BC, SELFPAY ==
[2024-08-08 14:13] LABS: Strep B DNA Probe Negative (Negative)
[2024-08-08 14:25] LABS: Strep B Susceptibility Needed? No
== END 2024-08-07 12:23 | disposition home or self-care (01) ==
LOC: NFLDREF 12:23
PROVIDERS: Visit Provider Advanced Practice Midwife
DX: Z34.93 Encounter for supervision of normal pregnancy, unspecified, third trimester (principal); Z3A.36 36 weeks gestation of pregnancy
CPT/HCPCS: 87081; 87653

== ENCOUNTER 2024-08-14 17:57 | Inpatient (IN) | payer BC, SELFPAY ==
[2024-08-14] VITALS (25 sets, daily range): BP systolic 107–152; BP diastolic 58–99; PULSE 78–114; RESP 16–22; TEMP 36.3–37.2; O2SAT 81–98; BMI 22.9
[2024-08-14 18:14] LABS: Hematocrit 33.7 % (33.0-51.0); Hemoglobin* 11.2 gm/dL (12.0-16.0); Mean Corpuscular HGB Conc 33 gm/dL (32-36); Mean Corpuscular Hemoglobin 27 pg (26-34); Mean Corpuscular Volume 81 fL (80-100); Platelet Count* 170 K/uL (140-440); Red Blood Count 4.15 m/uL (4.00-5.20)
[2024-08-14 18:20] LABS: Slide Review Reflex No
[2024-08-14 18:46] LABS: Total Protein Urine 15 mg/dL
[2024-08-14 18:47] LABS: Creatinine Urine 26.8 mg/dL; Protein Creatinine Ratio Urine 0.56 (0-0.19)
[2024-08-14 19:12] LABS: Alanine Aminotransferase* 16 U/L (4-35); Aspartate Amino Transferase* 27 U/L (12-35); Blood Urea Nitrogen* 12 mg/dL (5-24); Creatinine* 0.4 mg/dL (0.5-1.5); Est. Creatinine Clearance* 186.73; Estimated Glomerular Filt Rate 137 ml/min
--- NOTE | 2024-08-14 20:00 | W.PM.LDBA ---
Subjective History of Present Illness Date Seen: 08/14/24 Narrative: Jasmina is a 28 yo at 37 0/7 weeks being admitted from triage to Labor and Delivery for IOL for Pre-eclampsia based on elevated BP greater than 4 hours apart and elevated p/c ratio. She was seen earlier in clinic for her routine OB appointment and had an elevated blood pressure in clinic. She was encouraged to stay but had her 2 yo son with her. She was induced in her previous for pre-e with SF at 36.5 weeks gestation so she was aware of when to return and able to monitor her BP at home. She monitored her blood pressure at home after getting a plan for her son and called with elevated home reading. She presented to triage with mild range blood pressure. She denies any headache, blurred vision, or epigastric pain. She has been having contractions since this afternoon and they have intensified since arrival. She denies any leaking of fluid or bleeding. She was aware if she had an elevated blood pressure at home she would likely stay for IOL. Labs were drawn shortly after arrival and are WNL with p/c ratio of 0.56. She is supported in labor by her , Lawson. Her full history and physical was dictated by MICKIE Cisneros on 08/14/2024. Please see this for details. Specific Issues/Plans : Lawson H&P completed by MICKIE Cisneros on 08/14/2024 # Hx of delivery at 36.5 with IOL for severe pre-e # Hx of pre-eclampsia, severe Baseline labs drawn, 01/18 WNL Recommended baby ASA # Pre-eclampsia Elevated BP at 37 0/7 in clinic, had elevated at home and returned to triage for extended monitoring Recommended extended monitoring w/ BP. Had son with so desired to go home and return tomorrow 08/15 Imagin04/18/24: Anatomy scan. ?cephalic, cervix 4 cm, posterior placenta without previa, 3 vessel cord, SDP 4.6, normal visualized anatomy Vaccinations: COVID: [] Flu: recommended 04/18, declines Tdap: Declines 07/13/24 32 week mental health: [] Pap due OB - Problem Based A/P Additional Plan (1) Pre-eclampsia: Status: Acute (2) Encounter for induction of labor: Status: Acute (3) History of pre-eclampsia in prior , currently : Problem details: W/ SF, on magnesium during labor/ Status: Acute (4) 37 weeks gestation of : Status: Acute Plan ASSESSMENT:? 28 yo at 37.0 weeks gestation? complicated by:?Hx of at 36.5, hx of severe pre-e, Pre-eclamspia without SF Labor type: Induced, Early labor? Category 1 FHR pattern.?? Labor complicated by: Pre-eclampsia without SF? GBS negative? ? PLAN:? 1. Routine intrapartum cares as ordered. Discussed IOL options including ripening agents, mechanical dilation which she declines, AROM, vs pitocin. Because she is pedro and feeling them, we discussed not using certain cervical ripening. After exam, we discussed AROM vs Pitocin. Plan AROM, performed with clear fluid. In no significant change in 6 hours, discussed initiation of Pitocin. Patient is agreeable to plan. 2. Monitoring per policy, continuous? 3. Planning unmedicated . Candidate for analgesia of choice, if desired.?? 4. Patient encouraged to reposition and ambulate to promote physiologic labor and .? 5. BP monitoring per protocol. Labs WNL with p/c ratio 0.56. , Dr. Castro, notified of patient admission and plan. 6. Anticipate ? Delivery/Labor/Induction Plan Plan: induction Induction method: AROM OB Result Labs Labs: Lab Assessment Start: 08/14/24 18:06 Freq: ONCE Status: Complete Protocol: PC.OBGBS Activity Type Activity Date Activity User E-sign Co-sign Detail Recorded Client Recorded Date Recorded By Document 08/14/24 18:14 [facility] [id number] 08/14/24 18:15 [facility] 08/14/24 18:14 Lab Assessment GBS Status negative GBS Additional Criteria None Is Patient Allergic to Penicillin? No Are Labs Available Yes Maternal Blood Type A Maternal RH Factor Positive Evaluate Maternal Rubella Immune Status Immune Hepatitis B Surface Antigen Negative Maternal HIV Status Negative Maternal Syphillis (RPR) Status Negative WBC 8.60 K/uL (4.50-11.00) 08/14/24 18:02 RBC 4.15 m/uL (4.00-5.20) 08/14/24 18:02 Hgb 11.2 gm/dL (12.0-16.0) L 08/14/24 18:02 Hct 33.7 % (33.0-51.0) 08/14/24 18:02 MCV 81 fL (80-100) 08/14/24 18:02 MCH 27 pg (26-34) 08/14/24 18:02 MCHC 33 gm/dL (32-36) 08/14/24 18:02 Plt Count 170 K/uL (140-440) 08/14/24 18:02 BUN 12 mg/dL (5-24) 08/14/24 18:02 Creatinine 0.4 mg/dL (0.5-1.5) L 08/14/24 18:02 Estimated Creat Clear 186.73 08/14/24 18:02 Estimated GFR 137 ml/min 08/14/24 18:02 AST 27 U/L (12-35) 08/14/24 18:02 ALT 16 U/L (4-35) 08/14/24 18:02 Urine Creatinine 26.8 mg/dL 08/14/24 18:10 Protein/Creatinin Ratio 0.56 (0-0.19) H 08/14/24 18:10 Urine Total Protein 15 mg/dL 08/14/24 18:10 Labs Blood Type: A (+) positive GBS Status: negative OB Exam Physical Exam Vital signs: Temp Pulse Resp BP Pulse Ox 98.5 F 108 H 22 142/94 H 96 08/14/24 18:50 08/14/24 18:26 08/14/24 18:50 08/14/24 18:26 08/14/24 18:51 Narrative: Vitals Reviewed Constitutional:? Alert and oriented x3 HEENT:? Normocephalic, atraumatic Neck:? Supple Lungs:? Clear to auscultation bilaterally Heart:? Regular rate and rhythm, no murmur, rub or gallop Abdomen:? Soft, nontender, and gravid. Vertex by Adria's, confirmed with cervical exam. Extremities:? No edema or erythema Cervix: 4 cm/70%/-1 station/vertex; AROM clear fluid with consent NST: 145 bpm/moderate variability/15x15 accelerations/no decelerations/contractions every 2-5 minutes lasting 60-90 seconds Detailed Labor and Delivery Exam Patient Gravid: Yes Contraction intensity: Moderate
[2024-08-14] MEDS: LACTATED RINGERS 1000 ML 1,000 ML IV (23:44)
[2024-08-15] VITALS (55 sets, daily range): BP systolic 116–157; BP diastolic 59–93; PULSE 66–124; RESP 16–18; TEMP 36.5–36.9; O2SAT 93–100
--- NOTE | 2024-08-15 00:08 | P.OBPN_ITS ---
Documented by User: Rosana Allen 08/15/24 00:39 Subjective Date Seen: 08/15/24 Narrative: Patient in bed, working through contractions. Intermittent nausea. Inward focused and breathing deeply through each contraction. Intermittently using nitrous oxide, feeling the pain is becoming beyond what she can bear and desires and epidural. Feels somewhat defeated from her goal for unmedicated labor, reassurance provided. Reviewed process to prep for epidural. Able to ambulate to the bathroom to void and have BM. Aromatherapy and cool cloth to neck is helpful. Anesthesia to room to place epidural. Objective Exam: NEURO: Intact, clear speech, appropriate gait RESPIRATORY: Regular and deep breathing, no SOB or cough CARDIAC: Perfusing well ABDOMEN: Gravid, pedro SVE: 6/70/ Contractions: every1-4 min, regular Vital Signs: Last Vital Signs Temp 99 F 08/14/24 23:08 Pulse 99 08/14/24 23:08 Resp 18 08/14/24 23:08 BP 107/66 08/14/24 23:08 Pulse Ox 96 08/14/24 18:51 Pelvic Exam Dilation (cm): 6 Effacement (%): 70 Contractions Monitor mode: External Contraction Frequency: 1-4 min. Contraction pattern: Regular Contraction intensity: Moderate Assessment Assessment: active labor Amniotic Membrane Status: AROM Status: Category ll Heart Rate Baseline: 140 [employer] Variability: Moderate (6-25) Monitor Accelerations: Present Monitor Decelerations: Late Plan Plan: Plan ASSESSMENT:? 28 yo at 37.1 weeks gestation? complicated by:?Hx of at 36.5, hx of severe pre-e, Pre- eclamspia without SF Labor type: Induced, active labor? Category 2 FHR pattern.?? Labor complicated by: Pre-eclampsia without SF? GBS negative? ? PLAN:? 1. Routine intrapartum cares as ordered. Discussed anesthesia options. Has been utilizing nitrous oxide. Patient desires epidural anesthesia. 2. Monitoring per policy, continuous? 3. Planning epidural anesthesia. ? 4. Patient encouraged to reposition to promote physiologic labor and .? 5. BP monitoring per protocol. Labs WNL with p/c ratio 0.56. , Dr. Castro, notified of patient admission and plan. 6. Anticipate ? Documented by User: Camila Prakash CNM 08/15/24 04:02 Subjective Time Seen by Provider: 23:31 Date Seen: 08/14/24 Objective Exam: NEURO: Intact, clear speech, appropriate gait RESPIRATORY: Regular and deep breathing, no SOB or cough CARDIAC: Perfusing well ABDOMEN: Gravid, pedro SVE: 6/70/0 Contractions: every1-4 min, regular Pelvic Exam Station: 0 Plan Plan: Plan ASSESSMENT:? 28 yo at 37.1 weeks gestation? complicated by:?Hx of at 36.5, hx of severe pre-e, Pre- eclamspia without SF Labor type: Induced, active labor? Category 2 FHR pattern.?? Labor complicated by: Pre-eclampsia without SF? GBS negative? ? PLAN:? 1. Routine intrapartum cares as ordered. AROM'd and progressing appropriately, will continue as is. 2. Monitoring per policy, continuous? 3. Planning epidural anesthesia. ?Discussed anesthesia options. Has been utilizing nitrous oxide. Patient desires epidural anesthesia. 4. Patient encouraged to reposition to promote physiologic labor and .? 5. BP monitoring per protocol. BP's have mild range. 6. Anticipate .
[2024-08-15] MEDS: LIDOCAINE 2% (PF) 5 ML VIAL EPIDURAL (00:23)
[2024-08-15] MEDS: ROPIVACAINE 0.2% 100 ml 100 ML 12 MG EPIDURAL (00:23)
--- NOTE | 2024-08-15 00:35 | P.ANBPRC_ITS ---
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 Hx of Depression and/or Anxiety/other mood disorder: no hx Seat Belt Use: Routinely Smoking: Denies past/present Alcohol/day: Denies while ; Socially Caffeine: 1 cup coffee per day Drug Use: Denies past/present Chicken Pox: Vaccinated What is your current living situation?: I presently have a place to live Problems where you live: no known problems In the past 12 months, utilities in danger of being shut off: no In past 12 months, lack of transportation kept you from medical appts, meetings, work, or getting things needed for daily living: no In the past 12 mos, have been you worried that your food would run out before you had money to buy more?: never true In the past 12 mos, the food you bought just didn't last and you didn't have money to buy more?: never true Smoking Status: Never smoker How often does anyone, including family, friends and others, physically hurt you : never How often does anyone, including family, friends and others, insult or talk down to you: never How often does anyone, including family, friends and others, threaten you with harm: never How often does anyone, including family, friends and others, scream or curse at you: never Meds Home Medications and Allergies Home Medications ?Medication ?Instructions ?Recorded ?Confirmed ?Type vitamins no.119-iron 1 tab PO 02/10/24 08/14/24 History fumarate 29 mg-folic acid 1 mg tablet Allergies Allergy/AdvReac Type Severity Reaction Status Date / Time No Known Drug Allergies Allergy Verified 08/14/24 17:17 Results Labs Labs: Laboratory Results - last 24 hr 08/14/24 08/14/24 08/14/24 18:02 18:10 18:16 WBC 8.60 RBC 4.15 Hgb 11.2 L Hct 33.7 MCV 81 MCH 27 MCHC 33 Plt Count 170 BUN 12 Creatinine 0.4 L Estimated Creat Clear 186.73 Estimated GFR 137 AST 27 ALT 16 Urine Creatinine 26.8 Protein/Creatinin Ratio 0.56 H Urine Total Protein 15 Blood Type A Positive Antibody Screen NEGATIVE Vital Signs Vital Signs: Last Vital Signs Temp 99 F 08/14/24 23:08 Pulse 99 08/14/24 23:08 Resp 18 08/14/24 23:08 BP 107/66 08/14/24 23:08 Pulse Ox 96 08/14/24 18:51 Weight: 62.55 kg Height: 165.1 cm Anesthesia Procedures Epidural Insertion Patient Location: OB Start Time: 00:10 Stop Time: 01:10 Start Date: 08/15/24 Stop Date: 08/15/24 Reason for Block: procedure for pain Patient Position: sitting Performed By: Ernie Napoles Preanesthetic Checklist: IV checked, risks and benefits discussed, monitors and equipment checked, pre-op evaluation, timeout performed and anesthesia consent Prep: chlorhexidine gluconate Monitoring: blood pressure monitoring, continuous pulse oximetry and heart rate Approach: midline Vertebral Space: lumbar (1-5) Epidural Technique: MARCIA saline Needle Type: Tuohy needle Injection Technique: continuous catheter Needle gauge: 17 Needle Length (cm): 10 cm Needle Insertion Depth (cm): 6 Catheter Gauge: 19 Catheter Type: multi-orifice Catheter at skin depth (cm): 14 Test Dose Result: negative and lidocaine 1.5% with epinephrine 1 to 200,000
--- NOTE | 2024-08-15 03:27 | W.PM.OBVAGDE ---
Documented by User: Rosana Allen 08/15/24 03:55 OB Procedure Vag Delivery Mother Details Mother Details: The patient is a 28 year-old, 2, Para 2, admitted on 08/14/24 at Days gestation. : 2 Para: 2 Weeks Gestation: 37.1 Admission Date: 08/14/24 Additional Details Amniotic Membrane Status: AROM Amniotic Membrane Rupture Date: 08/14/24 Amniotic Membrane Rupture Time: 19:03 Amniotic Membrane Fluid Description: Clear Analgesia/Anesthesia Type: Epidural Waterbirth: No Pitcoin: No Intrapartal Events: Labor Induction Induction Method: AROM Labor Onset: 23:30 Complete: 01:49 Pushin:40 Heart: heart tones during second stage were category II, with decelerations noted during pushing returning to baseline between contractions. Delivery Details Delivery Date: 08/15/24 Delivery Time: 02:37 Route of delivery: Infant Gender: Female Viability: Alive; Heart Rate Present Position at Delivery: OA Delivery Details: Patient was admitted for IOL due to preeclampsia diagnosed in triage and progressed with augmentation. AROM at 1903 with clear fluid. Patient was complete at 0149 and pushing at 0140. of a viable female at 0237 in the bed. Vertex delivered SHERLY, restituting ROT. No nuchal cord or shoulder. Body delivered easily and without incident. Infant passed to mothers abdomen with a vigorous cry. Cord was clamped and cut at > 5 minutes. APGARS were 8 at one minute and 9 at five minutes respectively. Intact placenta with a 3 vessel cord delivered spontaneously at 0258 . Fundus firm. Abrasion to posterior vagina identified and repaired in typical fashion. QBL 100 cc. Mother and baby stable; mother plans to breastfeed. Infant weight pending.? 1 Minute Interval Total Score: 8 5 Minute Interval Total Score: 9 Additional Details Shoulder Dystocia: No Placenta Delivery Time: 02:58 Placental Delivery Description: Spontaneous Procedure Done: Global Blood Loss: 100 Laceration: Superficial (Vaginal) Blood Loss Measurement Type: QBL Bakri Used: No Sponge/Need Count Correct: Yes Cord Vessel Description: 3 Vessels Event Summary Status: Mother and infant were stable after delivery. Disposition: floor Documented by User: Camila Prakash CNM 08/15/24 04:18 OB Procedure Vag Delivery Mother Details Mother Details: The patient is a 28 year-old, 2, Para 2, admitted on 08/14/24 at 37.0 weeks gestation. Additional Details Pitcoin: No (Pt desired expectant management) Delivery Details Delivery Details: Patient was admitted for IOL due to preeclampsia diagnosed in triage and progressed with augmentation of AROM at 1903 with clear fluid. She then progressed normally. Patient was anterior lip and pushing at 0140 and easily reduced itself, noted complete at 0149. of a viable female at 0237 in the bed. Vertex delivered SHERLY, restituting ROT. No nuchal cord or shoulder. Body delivered easily and without incident. passed to mothers abdomen with a vigorous cry. Cord was clamped and cut at > 5 minutes. APGARS were 8 at one minute and 9 at five minutes respectively. Intact placenta with a 3 vessel cord delivered spontaneously at 0258. Fundus firm. Abrasion to posterior vagina identified and repaired in typical fashion. QBL 100 cc. Mother and baby stable; mother plans to breastfeed. Infant weight pending.? Event Summary Status: Mother and were stable after delivery. I,?Camila Prakash APRN, CNM, was present for visit and have reviewed and agree with documentation by the Certified Nurse Midwifery Student.
[2024-08-15] MEDS: NIFEdipine ER 30 MG TAB PO (04:52)
[2024-08-15] MEDS: IBUPROFEN 600 MG TABLET PO ×3 (06:56→20:08)
[2024-08-15] MEDS: ACETAMINOPHEN 500 MG TABLET 1000 MG PO (10:23)
--- NOTE | 2024-08-15 13:31 | PM.ANPOST ---
Post Anesthesia Note Post Anesthesia Note Patient seen: Inpatient Respiratory Status: adequate Cardiovascular Status: adequate Mental Status: baseline Pain: adequate Temp: baseline Anesthetic awareness: N/A Complications: none Follow care: none
[2024-08-15] MEDS: DOCUSATE SODIUM 100 MG CAPSULE PO (14:12)
[2024-08-16] MEDS: IBUPROFEN 600 MG TABLET PO ×3 (02:01→19:38)
[2024-08-16 03:31] VITALS: BP 123/72; PULSE 91; RESP 18; TEMP 36.7; O2SAT 96
[2024-08-16 07:35] VITALS: BP 138/87; PULSE 76; RESP 12; TEMP 36.4; O2SAT 97
--- NOTE | 2024-08-16 07:52 | PM.OBPNVD1 ---
OB - PN:Subj Subjective Date Seen: 08/16/24 Narrative: Jasmina is a 28 y.o. who was admitted to [facility] for induction of labor for preeclampsia.? She had an uncomplicated NVD.? ?? The patient feels well.? The pain is well controlled with current medications.? She has no new complaints.? She is breast feeding and reports things are going well.? the patient has done well.? Vitals have been stable she has had intermittent elevated blood pressures and is taking Nifedipine 30mg daily at this time.? She has remained afebrile.? Has a good appetite, is tolerating a general diet.? She is voiding without difficulty.? She is passing gas and has had a bowel movement.? She is ambulating and denies any dizziness.? Has Small amount of rubra lochia.? OB - PN: Obj Exam Physical Exam: Vital signs: Temp Pulse Resp BP Pulse Ox O2 Del Method 97.5 F L 76 12 138/87 97 Room Air 08/16/24 07:35 08/16/24 07:35 08/16/24 07:35 08/16/24 07:35 08/16/24 07:35 08/16/24 07:35 Narrative: GENERAL APPEARANCE:? normal affect, alert, no distress? MOOD:? appropriate? HEENT: normocephalic, neck supple, full ROM? CHEST:? Symmetrical chest wall movement.? Normal respiratory effort.? Clear to auscultation ? HEART:? regular rate and rhythm? ABDOMEN:? soft, non-tender. Uterine fundus is firm, 1 below Umbilicus, Midline and is appropriate for the stage of recovery.? Bowel sounds present.? PERINEUM:? mild edema of the perineum, there is a superficial laceration that is healing well.? EXTREMITIES:? normal and trace edema? OB - PN: A/P Delivery Assessment and Plan (1) Pre-eclampsia: Status: Acute (2) Encounter for induction of labor: Status: Acute (3) 37 weeks gestation of : Status: Acute (4) care and examination of lactating mother: Status: Acute Plan day: 1 Plan: routine care Comments: G 2 P 2 status post uncomplicated NVD??? 1.? Continue route PP cares? 2.? .? May see if desired? 3.? Anticipate discharge home tomorrow? 4. Monitor blood pressure today, adjust Nifedipine dose if needed.
[2024-08-16] MEDS: NIFEdipine ER 30 MG TAB PO ×2 (08:38→21:20)
[2024-08-16] MEDS: DOCUSATE SODIUM 100 MG CAPSULE PO (08:39)
[2024-08-16 11:24] VITALS: BP 134/83
[2024-08-16 15:47] VITALS: BP 137/86; PULSE 80; RESP 12; TEMP 36.7; O2SAT 98
[2024-08-16 19:30] VITALS: BP 135/77; PULSE 97; RESP 16; TEMP 36.7; O2SAT 96
[2024-08-17 00:03] VITALS: BP 139/88; PULSE 89; RESP 16; TEMP 36.6; O2SAT 98
[2024-08-17 03:50] LABS: Rapid Plasma Reagin (RPR) Non Reactive (Non Reactive)
[2024-08-17 04:01] VITALS: BP 123/78; PULSE 70; RESP 16; TEMP 36.6; O2SAT 97
--- NOTE | 2024-08-17 07:07 | P.DS_ITS ---
DS: Providers Provider Date Seen: 08/17/24 Date of admission: 08/14/24 17:57 Primary care physician: Not a Local Provider Admitting Clinician: Camila Prakash CNM Attending Physician on discharge: Camila Prakash CNM DS: Diagnosis Discharge Diagnosis (1) care and examination of lactating mother: Status: Acute (2) Pre-eclampsia: Status: Acute Exam Narrative: Exam Narrative: GENERAL APPEARANCE:? normal affect, alert, no distress MOOD:? appropriate CHEST:? clear to auscultation HEART:? regular rate and rhythm ABDOMEN:? soft, non-tender the uterine fundus is At Umbilicus, Midline and is appropriate for the stage of recovery. PERINEUM:? mild edema of the perineum. EXTREMITIES:? normal and no edema Const: Vital Signs, click to edit/add: Vital Signs - 24 hr 08/16/24 07:35 08/16/24 11:24 08/16/24 15:47 Temperature 97.5 F L 98.0 F Pulse Rate [Blood Pressure Cuff] 76 80 Respiratory Rate 12 12 Blood Pressure [Ri ght Arm] 138/87 134/83 137/86 Pulse Oximetry 97 98 Oxygen Delivery Me thod Room Air Room Air 08/16/24 19:30 08/17/24 00:03 08/17/24 04:01 Temperature 98.0 F 97.9 F 97.9 F Pulse Rate [Blood Pressure Cuff] 97 89 70 Respiratory Rate 16 16 16 Blood Pressure [Ri ght Arm] 135/77 139/88 123/78 Pulse Oximetry 96 98 97 Oxygen Delivery Me thod Room Air Room Air Room Air Documenting provider has reviewed patient's vital signs: yes OB - DS: Summary Hospital Course Hospital Course: Jasmina is a 28 y.o. G 2 P 2 who was admitted to [facility] for spontaneous onset of labor. ?She had a NVD that was uncomplicated. Her was complicated by elevated blood pressures, similar to that in labor but meeting criteria for medication management . She was started on BID nifedipine 30 mg. She will continue this at discharge. Vitals have been stable, BP improved with medications.? The patient feels well. ?The pain is well controlled with current medications. ?She has no new complaints. ?She is breast feeding and reports things are going well. the patient has done well.? She has remained afebrile.? Has a good appetite, is tolerating a general diet. ?She is voiding without difficulty.? She is passing gas and has not had a bowel movement.? She is ambulating and denies any dizziness.? Has small amount of rubra lochia. Problems: Pre-eclampsia with elevated BP continued Discharge home with baby.? Follow up in 2 weeks and 6 weeks.? , may see if needed? Hgb 11.2. ? Pre-E diagnosed by elevated BP greater than 4 hours apart? Labs WNL Discharge home with BP cuff if does not already have one? Follow up in 3-5 days? Call for signs/symptoms of preeclampsia? For pain control of perineum, breast and pelvic pain, take 600 mg Ibuprofen every 6 hours as needed by mouth or 1000 mg acetaminophen (Tylenol) every 6 hours by mouth as needed. You can alternate these so you are taking something every 3 hours as needed. A heating pad can also be used for your abdomen or breasts. You may also take docusate sodium up to twice daily to soften your stools and help to prevent constipation. You may wean off of it when your stools return to normal.? Peripartum Data delivery method: Vaginal Laceration description: None complications: none Infant Gender: Female Discharge Plan: Home Status at Discharge Functional status at discharge: independent ambulation Overall status at discharge: patient is progressing back to baseline Time Spent with Patient Time attestation: Total time spent providing and/or coordinating discharge services: Time spent: Less than 30 minutes Discharge Plan Discharge Disposition: Home, Self-Care Date of Admission: 08/14/24 17:57 Attending Provider on Discharge: Camila Prakash Primary Care Provider: Provider,Not a Local Condition: Stable Anticipated Discharge Date/Time: 08/17/24 12:00 Discharge Medications: New nifedipine 30 mg Tablet Extended Release 30 mg PO BID Qty: 30 1RF acetaminophen 500 mg Tablet 1,000 mg PO Q6H PRNQty: 0 0RF docusate sodium 100 mg Capsule 100 mg PO DAILY Qty: 90 0RF ibuprofen 600 mg Tablet 600 mg PO Q6H PRNQty: 60 0RF Continued PNV 119-iron fum-folic acid 29 mg iron- 1 mg tablet 1 tab PO Discharge Orders: Discharge Order (Routine); Ordered 08/17/24 Ordered By: Camila Prakash Patient Education: OB Over the Counter Medication Information, OB Vaginal/Breast Feeding Additional Instructions: Discharge instructions were reviewed with the patient including signs and symptoms of infection and home going medications Nothing vaginally for 6 weeks: no tampons or intercourse Off Work or School for 6 weeks Follow [facility] for a BP check?3-5 days * Call with BP greater than or equal to 160/110 * Severe headache that doesn't improve after taking medications * Changes in vision, including temporary loss of vision, blurred vision, and/or light sensitivity * Upper abdominal pain (usually under ribs on the right side) 2-week visit: discuss feeding concerns, review control options and screen for anxiety/depression. 6-week visit for an annual exam. consultation services are available to all mothers and babies for the first year after delivery.? To make an appointment, please call [phone]. Activity Level: Activity as Tolerated Discharge Diet: Regular Follow Up Appointments: [facility] [Provider Group] Forms: MyHealth Info Instructions
[2024-08-17] MEDS: NIFEdipine ER 30 MG TAB PO (08:02)
[2024-08-17] MEDS: DOCUSATE SODIUM 100 MG CAPSULE PO (08:02)
[2024-08-17 08:05] VITALS: BP 138/90; PULSE 76; RESP 16; O2SAT 97
== END 2024-08-17 10:51 | disposition home or self-care (01) | DRG 560 ==
LOC: OB OUT 17:58 → OB 17:58
PROVIDERS: Admitting Provider Advanced Practice Midwife; Visit Provider Advanced Practice Midwife
DX: O14.04 Mild to moderate pre-eclampsia, complicating childbirth (principal); O70.9 Perineal laceration during delivery, unspecified; Z3A.37 37 weeks gestation of pregnancy; Z37.0 Single live birth
CPT/HCPCS: 01967; 36415; 82565; 82570; 84156; 84450; 84460; 84520; 85025; 85027; 86592; 86850; 86900; 86901; 94761; A9270; J2795; J7120

== ENCOUNTER 2024-09-26 12:15 | Outpatient (CLI) | payer BC, SELFPAY ==
--- NOTE | 2024-09-26 14:22 | W.PM.LAC.MC ---
Consult Note - Mom Date of Visit Date of visit: 09/26/24 Reason for consultation: Assistance Needed Visit Code: Visit Patient's Information Phone number: [phone] : 2 Para: 2 Allergies No Known Drug Allergies Allergy (Verified 09/26/24 11:42) Mother's Medical History: Medical History (Updated 08/22/24 @ 00:01 by Background Daemon) Status post normal vaginal delivery Pre-eclampsia, severe, delivered ?O14.14 - Severe pre-eclampsia complicating childbirth (ICD-10) Pre-eclampsia, severe ?O14.10 - Severe pre-eclampsia, unspecified trimester (ICD-10) COVID-19 affecting , antepartum ?O98.519 - Other viral diseases complicating , unspecified trimester (ICD-10) ?U07.1 - COVID-19 (ICD-10) No chronic problems Work Plans: return to work October 2024 Delivery Information Delivery type: Vaginal Gestational Age: 37+1 Gestational Weight For Age: AGA Weight: 2.99 kg Discharge Weight: 2.809 kg Percentage weight loss: 6.1 Baby's Information Baby's Age at Visit: 1m 12d Baby's Provider or Clinic: [facility] Jaundice: No Past Experience Past Experience: No Current Frequency of Day Feedings: every 1.5-2 hours Frequency of Night Feedings: every 3-4 hours Both Breasts: Yes (sometimes) Suck: strong Latch: messy on mom's right side Length of Time: 10-15 minutes Goals: 1 year Pumping Pumping: Yes Quantity Pumped: 3+ oz on RIGHT; 2-3 oz on LEFT Supplementing EBM Supplement: Yes (1 bottle/day of 3 oz) Formula Supplement: No Baby Elimination Number of Wet Diapers a Day: lots of wet diapers Number of BM a Day: every other day; 1 large or multiple small, yellow in color Breast/Nipple Condition Breast Information: Breasts are symmetrical with rounded lower quadrants, intramammary distance is less than 1.5 inches. No erythema. Nipples are supple, everted prior to feeding, long nipples 2mm white papule on end of RIGHT nippl Breast Shape: Round Engorgement: No Maternal Nipple Condition - Left: Common Nipple Maternal Nipple Condition - Right: Common Nipple Sore Nipples: Yes (slight from milk bleb) Interventions for Sore Nipples: Lansinoh/Nipple Cream Baby Assessment Skin: Normal Tongue/frenulum: Restricted mid-range Palate: Average Lips: Tight labial frenulum (upper lip tie, does not close lips, not able to flange over nostril, blanches when try to insert finger under upper lip) and Other (sleeps with mouth open) Jaw Alignment: Symmetrical Mucosa: [place], moist Onsite Observation Pre-Feed weight: 4.008 kg Post-Feed weight: 4.084 kg Milk Transferred (mL): 76 Position: Cross cradle Attachment/latch-on achieved: Easily (on left) and With difficulty (on right) Suck pattern: Suck burst and normal rest (lots of slurpy/smacking sounds both left and right but more on right) Swallow: Audible, consistent Behavior following feed: Alert, fussy (until she burps multiple times) Pre-Nursing Left Nipple: Within Normal Limits Pre-Nursing Right Nipple: Within Normal Limits Post-Nursing Left Nipple: Within Normal Limits Post-Nursing Right Nipple: Within Normal Limits Assessments/Interventions Assessments/Interventions: Mom here with baby Yamilka with concerns related to feedings: questioning lip tie and possible tongue tie - discussed findings diff latching to her right breast; reviewed positioning fussy after feedings, very gassy and unhappy; ellyn currently seeking medicare sales executive-had her 3rd visit today. Mom does think she is improving in her ability? to latch to the right breast; discussed PT eval if latching to RIGHT continues to be an issue and concerns of early torticollis. Currently ellyn does have full ROM to right and left but alert given diff latch. Also has a milk bleb-present for 4-5 weeks; has tried nipple cream, epsom salt soaks, popping it twice to no avail Education provided: Early feeding cues to maximize timing of latching, Transfer for baby and increase comfort for mom (Offer both breasts ea feeding to increase intake; positioning reviewed, keep baby held snugly to body, hips pulled in to mom to prevent her slipping off the breast, especially with a tighter tongue and fatigue tohelp minimize air intake), Supply/demand nature of milk supply, Need for frequent stimulation/milk removal, Alternative feeding methods (SNS, cup, finger feeding, bottling) (bottle options that may help decrease air intake, Discussed bottle options, chin support when bottling to help minimize air intake) and Pumping for milk management (answered questions re: milk supply, freezer stash, maintaining supply as mom lost her supply with first child around 3-4 months) Handouts Provided: Ankylglossia treatment options of lip tie, tongue tie Discussed PRINTING PRESS MACHINE OPERATOR as a treatment modality for tethered oral tissues as well as fussiness; may help tongue work better Suck training exercises discussed to try and increase strength of tongue muscles Follow-Up Suggested follow up: Appointment as needed Recommend mom be seen by provider for:: Connected with Camila Prakash re: rx for triamcinolone; this will be sent in for mom for treatment of milk bleb Time Spent Time spent with patient (min): 90 Meds Home Medications and Allergies Home Medications ?Medication ?Instructions ?Recorded ?Confirmed ?Type triamcinolone acetonide 0.1 % 1 applic topical QDAY 2 weeks #15 09/26/24 09/26/24 Rx topical cream grams Allergies Allergy/AdvReac Type Severity Reaction Status Date / Time No Known Drug Allergies Allergy Verified 09/26/24 11:42
== END 2024-09-26 12:16 | disposition home or self-care (01) ==
LOC: OB LAC 12:15
PROVIDERS: Visit Provider Obstetrics & Gynecology
DX: Z39.1 Encounter for care and examination of lactating mother (principal)
CPT/HCPCS: 87624; 88142; G0463